=== PATIENT | female | born 1965 | race Asian ===

== ENCOUNTER 2020-02-25 15:33 | Outpatient (CLI) | payer OTHER | END 2020-02-25 23:59 | disposition home or self-care (01) | LOC: CARD 15:33 | PROVIDERS: ATTEND Family Medicine | DX: R94.2 Abnormal results of pulmonary function studies (principal); C84.43 Peripheral T-cell lymphoma, not elsewhere classified, intra-abdominal lymph nodes | CPT/HCPCS: 94060; 94726; 94729 ==